=== PATIENT | female | born 1995 | race Caucasian/White ===

== ENCOUNTER 2020-11-02 18:12 | Emergency (ER) | payer BC, SELFPAY ==
--- NOTE | ~2020-11-02 | XR_ITS ---
EXAMINATION: XR chest 2V 11/02/2020 19:04 INDICATION: Congestion. Cough. PROCEDURE: 2 view chest COMPARISON: No prior studies for comparison. FINDINGS: The lungs are clear. The cardiomediastinal silhouette is within normal limits. There are no pleural effusions. There is no pneumothorax suspected. IMPRESSION: 1: NO ACUTE CARDIOPULMONARY DISEASE. Reviewed, dictated and finalized at location A.
[2020-11-02 18:24] VITALS: BP 131/82; PULSE 99; RESP 18; TEMP 37.1; O2SAT 99
--- NOTE | 2020-11-02 18:59 | ED.GENADULT ---
HPI - General Adult General Chief complaint: Upper Respiratory Infection Stated complaint: Congestion Source: patient Mode of arrival: ambulatory Limitations: no limitations History of Present Illness HPI narrative: Patient presents for evaluation of a multitude of complaints. She indicates on Tuesday of last week she developed some fatigue and sinus congestion. The following day she noted muscle aches, sore throat, feeling feverish without objective fever, productive cough of yellow sputum and some confusion. The following day she developed confusion and yesterday she noted that her cough was worsening. Of note, she states that none of the symptoms are new and they are all chronic. However she notes that the symptoms have been worse over the course of the last few days. She initially informed me that she is immunocompromised but when asked for further clarification she states that she is assuming she is immunocompromised. She states that she is sensitive to sickness . She has no formal diagnosis of autoimmune disease and/or immunodeficiencies such as HIV or AIDS. She has been under the care of a provider for headaches and what sounds to be anxiety and panic attacks. She states last year in January she went to the emergency department in [place] when she was visiting friends there. She states that she went there because the alcohol and marijuana mix were too much for (her) . 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 She states she lives with her partner and that the relationship has been going well. She indicates she came in today to ensure that she did not need antibiotics for bronchitis . She is also saying that there is no way that she could go to work tomorrow. On my initial evaluation, she is displaying some bizarre behavior and avoids answering many of my questions and less I asked the question several times. However she denies any SI, HI, AH, VH. She states when she was evaluated in the emergency department in [place] her heart was going fast , although it sounds that this was related to anxiety and she was discharged from the department. She states she gets chest pain from time to time but has not had any currently or recently. She denies illicit drug use. LMP now. Related Data Allergies Allergy/AdvReac Type Severity Reaction Status Date / Time SHELLFISH Allergy Intermediate THROAT Uncoded 08/04/13 14:27 SWELLS Honey Bee Allergy Unknown UNKNOWN Uncoded 08/04/13 14:27 Review of Systems Review of Systems: Narrative: CONSTITUTIONAL: Reports feeling feverish without objective fever. Denies chills EYES: Denies visual changes, redness, or discharge. ENT: Reports sinus congestion, sinus drainage, sore throat. Denies otalgia CARDIOVASCULAR: Reports history of chest pain but none currently. Denies palpitations or edema RESPIRATORY: Reports cough and exertional dyspnea GASTROINTESTINAL: Reports diarrhea. Denies abdominal pain, nausea, vomiting GENITOURINARY: Denies dysuria or hematuria. SKIN: Denies rash or itching. MUSCULOSKELETAL: Reports generalized body aches NEUROLOGIC: Reports headache and confusion PSYCHIATRIC: Reports anxiety. Denies depressive symptoms. Denies SI, HI, AH, VH. [facility] Past Medical History Medical History (Updated 11/02/20 @ 19:22 by STEPHANE Luna, ) Anxiety Migraines Surgical History Surgical History Hx of tonsillectomy Family History Family History Mother Thyroid disorder Social History Social History (Updated 11/02/20 @ 19:07 by STEPHANE Luna, ) Smoking status: Former smoker Alcohol intake: former Substance use: former Substance use type: marijuana Additional living arrangements comments: Lives with partner Additional occupation/education
== END 2020-11-02 19:26 | disposition home or self-care (01) ==
PROVIDERS: Emergency Provider Nurse Practitioner
DX: J40 Bronchitis, not specified as acute or chronic (principal); Z20.822 Contact with and (suspected) exposure to COVID-19; Z87.891 Personal history of nicotine dependence
CPT/HCPCS: 71046; 87081; 87426; 87804; 87880; 99213; C9803; G0463